=== PATIENT | female | born 1940 | race Caucasian/White ===

== ENCOUNTER 2017-06-26 13:02 | Day surgery (SDC) | payer MEDICARE, BC | END 2017-06-26 15:30 | disposition home or self-care (01) | LOC: HRAD 13:02 → HRIP 13:03 → HRAD 15:30 | PROVIDERS: ATTEND Internal Medicine | DX: E04.1 Nontoxic single thyroid nodule (principal); Z53.9 Procedure and treatment not carried out, unspecified reason ==